=== PATIENT | female | born 1980 | race Asian ===

== ENCOUNTER 2018-03-28 15:33 | Outpatient (CLI) | payer BC, OTHER ==
[2018-03-28 16:22] LABS: BASOPHILS % (AUTO) 0.5 % (0.0-2.0); HEMATOCRIT 34 % (33-45); HEMOGLOBIN 10.9 g/dL (11.5-14.8); LYMPHOCYTES # (AUTO) 2.9 /CMM (0.8-4.8); LYMPHOCYTES % (AUTO) 41.2 % (20.0-44.0); MEAN CORPUSCULAR HGB CONC 32 g/dl (31.0-36.0); MEAN CORPUSCULAR VOLUME 85 fL (82-100); MONOCYTES # (AUTO) 0.4 /CMM (0.1-1.30); MONOCYTES % (AUTO) 5.6 % (2.0-12.0); NEUTROPHILS # (AUTO) 3.6 /CMM (1.8-8.9); NEUTROPHILS % (AUTO) 51.7 % (43.0-81.0); PLATELET COUNT (AUTO) 394 /CMM (150-450); RDW COEFFICIENT OF VARIATION 15.2 (11.5-15.0); RED BLOOD CELL COUNT(AUTO) 3.97 MIL/uL (4.0-5.2)
[2018-03-28 16:49] LABS: ALBUMIN 4.1 g/dL (3.4-5.0); BILIRUBIN,TOTAL 0.3 mg/dL (0.2-1.0); CALCIUM, SERUM 8.8 mg/dL (8.5-10.1); CREATININE 0.8 mg/dL (0.6-1.3); POTASSIUM 3.4 mmol/L (3.5-5.1)
[2018-03-28 17:00] LABS: THYROID STIMULATING HORMONE 1.852 uIU/mL (0.358-3.74); URIC ACID 3.7 mg/dL (2.6-7.2)
[2018-03-28 17:02] LABS: APPEARANCE,URINE CLEAR (CLEAR); BILIRUBIN,URINE NEGATIVE (NEGATIVE); BLOOD, URINE NEGATIVE Ery/uL (NEGATIVE); COLOR,URINE YELLOW (YELLOW); KETONES,URINE NEGATIVE (NEGATIVE); LEUKOCYTE ESTERASE ,URINE NEGATIVE (NEGATIVE); NITRITE, URINE NEGATIVE (NEGATIVE); PROTEIN,URINE NEGATIVE (NEGATIVE); UGLUCOSE NEGATIVE (NEGATIVE); UROBILINOGEN,URINE 0.2 EU/dL (0.2)
== END 2018-03-28 23:59 | disposition home or self-care (01) ==
LOC: LAB 15:33
PROVIDERS: ATTEND Legal Medicine
DX: Z00.00 Encounter for general adult medical examination without abnormal findings (principal)
CPT/HCPCS: 36415; 80053-TC; 80061-TC; 81000-TC; 82306; 82746; 83540-TC; 84439-TC; 84443-TC; 84550-TC; 85025-TC

== ENCOUNTER 2018-04-11 12:59 | Outpatient (CLI) | payer BC | END 2018-04-11 23:59 | disposition home or self-care (01) | LOC: RAD 12:59 | PROVIDERS: ATTEND Legal Medicine | DX: M41.9 Scoliosis, unspecified (principal); R06.02 Shortness of breath; R13.10 Dysphagia, unspecified | CPT/HCPCS: 70490-TC; 71046 ==

== ENCOUNTER 2018-07-19 10:52 | Outpatient (CLI) | payer BC | END 2018-07-19 23:59 | disposition home or self-care (01) | LOC: US 10:52 | PROVIDERS: ATTEND Legal Medicine | DX: E04.1 Nontoxic single thyroid nodule (principal) | CPT/HCPCS: 76536-TC ==

== ENCOUNTER 2019-09-01 15:14 | Outpatient (CLI) | payer BC ==
[2019-09-01 16:02] LABS: BASOPHILS % (AUTO) 0.6 % (0.0-2.0); EOSINOPHILS % (AUTO) 0.8 % (0.0-6.0); HEMATOCRIT 43 % (33-45); HEMOGLOBIN 13.9 g/dL (11.5-14.8); LYMPHOCYTES # (AUTO) 1.8 /CMM (0.8-4.8); LYMPHOCYTES % (AUTO) 28.8 % (20.0-44.0); MEAN CORPUSCULAR HGB CONC 32 g/dl (31.0-36.0); MEAN CORPUSCULAR VOLUME 92 fL (82-100); MONOCYTES # (AUTO) 0.3 /CMM (0.1-1.30); MONOCYTES % (AUTO) 4.5 % (2.0-12.0); NEUTROPHILS % (AUTO) 65.3 % (43.0-81.0); PLATELET COUNT (AUTO) 310 /CMM (150-450); RED BLOOD CELL COUNT(AUTO) 4.68 MIL/uL (4.0-5.2); WHITE BLOOD COUNT (AUTO) 6.2 K/uL (4.3-11.0)
[2019-09-01 16:03] LABS: BILIRUBIN,URINE NEGATIVE (NEGATIVE); BLOOD, URINE NEGATIVE Ery/uL (NEGATIVE); COLOR,URINE YELLOW (YELLOW); KETONES,URINE NEGATIVE (NEGATIVE); LEUKOCYTE ESTERASE ,URINE NEGATIVE (NEGATIVE); NITRITE, URINE NEGATIVE (NEGATIVE); PH,URINE 5.5 (5.0-8.0); PROTEIN,URINE NEGATIVE (NEGATIVE); UGLUCOSE NEGATIVE (NEGATIVE); UROBILINOGEN,URINE 0.2 EU/dL (0.2)
[2019-09-01 16:04] LABS: APPEARANCE,URINE CLEAR (CLEAR)
[2019-09-01 16:21] LABS: ALBUMIN 4.5 g/dL (3.4-5.0); BILIRUBIN,TOTAL 0.5 mg/dL (0.2-1.0); CALCIUM, SERUM 9.2 mg/dL (8.5-10.1); CREATININE 0.8 mg/dL (0.6-1.3); POTASSIUM 3.5 mmol/L (3.5-5.1); TOTAL PROTEIN, SERUM 8.3 g/dL (6.4-8.2)
[2019-09-01 16:49] LABS: THYROID STIMULATING HORMONE 1.265 uIU/mL (0.358-3.74)
[2019-09-02 08:06] LABS: CA 27.29 <3.5 U/mL (0.0-38.6)
[2019-09-02 12:06] LABS: CANCER AG, 125 51.4 U/mL (0.0-38.1); CANCER AG, 15-3 7.4 U/mL (0.0-25.0)
[2019-09-03 01:06] LABS: FOLIC ACID > 20.0 ng/mL (>3.0)
== END 2019-09-01 23:59 | disposition home or self-care (01) ==
LOC: LAB 15:14
PROVIDERS: ATTEND Legal Medicine
DX: Z00.00 Encounter for general adult medical examination without abnormal findings (principal); I10 Essential (primary) hypertension; E78.00 Pure hypercholesterolemia, unspecified; D64.9 Anemia, unspecified; E55.9 Vitamin D deficiency, unspecified; E03.9 Hypothyroidism, unspecified
CPT/HCPCS: 36415; 80053-TC; 80061-TC; 81000-TC; 82306; 82378; 82728-TC; 83540-TC; 83550-TC; 84439-TC; 84443-TC; 85025-TC; 86300; 86304; G0463

== ENCOUNTER 2019-09-09 07:51 | Outpatient (CLI) | payer BC ==
[2019-09-09] MEDS ORDERED: GADOTERIDOL 279.3 MG/ML VIAL IV ONE (07:52)
== END 2019-09-09 23:59 | disposition home or self-care (01) ==
LOC: MRI 07:51
PROVIDERS: ATTEND Legal Medicine
DX: M54.2 Cervicalgia (principal)
CPT/HCPCS: 70542; A9579

== ENCOUNTER 2019-09-25 09:59 | Outpatient (CLI) | payer BC ==
[2019-09-25] MEDS ORDERED: GADOTERIDOL 279.3 MG/ML VIAL IV ONE (10:00)
== END 2019-09-25 23:59 | disposition home or self-care (01) ==
LOC: MRI 09:59
PROVIDERS: ATTEND Obstetrics & Gynecology
DX: R97.1 Elevated cancer antigen 125 [CA 125] (principal); O34.219 Maternal care for unspecified type scar from previous cesarean delivery; N85.4 Malposition of uterus; D25.1 Intramural leiomyoma of uterus
CPT/HCPCS: 72197; A9579

== ENCOUNTER 2019-11-25 08:26 | Outpatient (CLI) | payer BC | END 2019-11-25 23:59 | disposition home or self-care (01) | LOC: LAB 08:26 | PROVIDERS: ATTEND Legal Medicine | DX: R10.9 Unspecified abdominal pain (principal) | CPT/HCPCS: 36415; 86304 ==

== ENCOUNTER 2020-09-15 16:41 | Outpatient (CLI) | payer BC ==
[2020-09-15 17:36] LABS: BILIRUBIN,URINE NEGATIVE (NEGATIVE); BLOOD, URINE NEGATIVE Ery/uL (NEGATIVE); COLOR,URINE YELLOW (YELLOW); LEUKOCYTE ESTERASE ,URINE TRACE (NEGATIVE); NITRITE, URINE NEGATIVE (NEGATIVE); PROTEIN,URINE NEGATIVE (NEGATIVE); UGLUCOSE NEGATIVE (NEGATIVE); UROBILINOGEN,URINE 0.2 EU/dL (0.2)
[2020-09-15 18:08] LABS: BILIRUBIN,TOTAL 0.3 mg/dL (0.2-1.0); CALCIUM, SERUM 9.3 mg/dL (8.5-10.1); CREATININE 0.8 mg/dL (0.6-1.3); POTASSIUM 3.4 mmol/L (3.5-5.1); TOTAL PROTEIN, SERUM 8.2 g/dL (6.4-8.2)
[2020-09-15 18:16] LABS: THYROID STIMULATING HORMONE 1.681 uIU/mL (0.358-3.74)
[2020-09-15 18:40] LABS: BACTERIA,URINE 1+ /HPF (None Seen); RBC,URINE 0-2 /HPF (0-2); SQUAMOUS EPITHELIAL CELL,UR Few /HPF (None Seen)
[2020-09-15 19:16] LABS: BASOPHILS % (AUTO) 0.6 % (0.0-2.0); EOSINOPHILS % (AUTO) 1.2 % (0.0-6.0); HEMATOCRIT 41 % (33-45); HEMOGLOBIN 13.4 g/dL (11.5-14.8); LYMPHOCYTES % (AUTO) 33.2 % (20.0-44.0); MEAN CORPUSCULAR HGB CONC 33 g/dl (31.0-36.0); MEAN CORPUSCULAR VOLUME 94 fL (82-100); MONOCYTES # (AUTO) 0.3 /CMM (0.1-1.30); MONOCYTES % (AUTO) 5.4 % (2.0-12.0); NEUTROPHILS # (AUTO) 3.6 /CMM (1.8-8.9); NEUTROPHILS % (AUTO) 59.6 % (43.0-81.0); PLATELET COUNT (AUTO) 307 /CMM (150-450); RED BLOOD CELL COUNT(AUTO) 4.42 MIL/uL (4.0-5.2)
[2020-09-16 08:07] LABS: CANCER AG, 125 26.4 U/mL (0.0-38.1); CANCER AG, 15-3 7.6 U/mL (0.0-25.0); FOLIC ACID > 20.0 ng/mL (>3.0)
[2020-09-17 02:08] LABS: CA 27.29 12.5 U/mL (0.0-38.6)
[2020-09-17 05:08] LABS: CARBOHYDRATE AG 19-9 24 U/mL (0-35)
== END 2020-09-15 23:59 | disposition home or self-care (01) ==
LOC: LAB 16:41
PROVIDERS: ATTEND Legal Medicine
DX: Z00.00 Encounter for general adult medical examination without abnormal findings (principal); E78.5 Hyperlipidemia, unspecified; I10 Essential (primary) hypertension; E03.9 Hypothyroidism, unspecified; E55.9 Vitamin D deficiency, unspecified; Z20.828 Contact with and (suspected) exposure to other viral communicable diseases
CPT/HCPCS: 36415; 80053; 80061; 81001; 82306; 82378; 82607; 82728; 82746; 83036; 83540; 84439; 84443; 84481; 85025; 86300 ×2; 86301; 86304; C9803; U0003